=== PATIENT | male | born 1950 | race Caucasian/White ===

== ENCOUNTER 2017-01-13 16:55 | Emergency (ER) | payer OTHER ==
[~2017-01-13] VITALS: Ht 165.1 cm; Wt 90.3 kg
[2017-01-13 16:58] VITALS: BP 148/102
--- NOTE | 2017-01-13 18:16 | NUR ---
PATIENT TAKEN TO BED 5.
--- NOTE | 2017-01-13 18:24 | NUR ---
PT PRESENTS TO ER W/C/O SOB X2 WEEKS O2 SAT OF 100%. HX ANXIETY.PAIN ALERT CALF;PAIN SCALE OF 10/10.DENIES ANY MEDICAL HX;STEADY GAIT;AAOX4;NO ACUTE DISTRESS NOTED;NEEDS ATTENDED;SAFETY MEASURES DONE;ALL MONITORS IN PLACED;POSITIONED FOR COMFORT;
[2017-01-13] MEDS ORDERED: KETOROLAC 60 MG/2 ML VIAL IM ONE (18:30)
--- NOTE | 2017-01-13 18:59 | NUR ---
US AT BEDSIDE.
--- NOTE | 2017-01-13 19:15 | NUR ---
report receivd from dede shrestha
--- NOTE | 2017-01-13 19:21 | NUR ---
REPORT GIVEN TO CLIFFORD ENRIQUE
[2017-01-13 20:00] VITALS: BP 131/82
== END 2017-01-13 19:59 | disposition home or self-care (01) ==
LOC: MED 16:55
DX: M25.562 Pain in left knee (principal); R06.02 Shortness of breath; F41.9 Anxiety disorder, unspecified
CPT/HCPCS: 93971; 96372; 99284; J1885; Q0092

== ENCOUNTER 2018-08-29 21:41 | Emergency (ER) | payer OTHER ==
[~2018-08-29] VITALS: Ht 157.5 cm; Wt 88.0 kg
[2018-08-29 21:56] VITALS: BP 203/112
--- NOTE | 2018-08-29 21:58 | NUR ---
TO LOBBY A/W BED, АНДРЕЙ BEAR NOTED
--- NOTE | 2018-08-29 22:05 | NUR ---
Sling to left arm applied for support. Jaci well.
[2018-08-29] MEDS ORDERED: KETOROLAC 30 MG/ML VIAL IM ONE (22:25)
--- NOTE | 2018-08-29 22:50 | NUR ---
PT RETURN FROM RADIOLOGY
--- NOTE | 2018-08-29 22:54 | NUR ---
Dr. Valdez evaluating patient at bedside.
[2018-08-29] MEDS ORDERED: PROPOFOL 200 MG/20 ML VIAL IV ONE ×2 (23:00→23:35)
--- NOTE | 2018-08-29 23:00 | NUR ---
67/M BIB AND DAUGHTER, S/P FALL TODAY, C/O 10/10 L SHOULDER PAIN. L SHOULDER SKIN INTACT, WITH DEFORMITY NOTED, TENDER TO TOUCH, +CIRCULATION, +SENSATION, DECREASED ROM. PT AOX4, GCS 15, AMBULATORY, PT IN MODERATE DISTRESS IN PAIN. HX HTN, HLD.
--- NOTE | 2018-08-29 23:15 | NUR ---
MODERATE SEDATION CONSENT SIGNED AND PRE-PROCEDURE COMPLETED. ER MD, RT, CHIMNEY BUILDER, EMT AND PRIMARY RN AT BEDSIDE.
--- NOTE | 2018-08-29 23:17 | NUR ---
Dr. Valdez at bedside for procedure
--- NOTE | 2018-08-29 23:18 | NUR ---
L SHOULDER DISCOLATION REDUCTION WITH MODERATE SEDATION PROCEDURE STARTED AT THIS TIME.
--- NOTE | 2018-08-29 23:25 | NUR ---
SUCCESSFUL REDUCTION OF L SHOULDER, PT TOLERATED WELL. VSS, RR EVEN AND UNLABORED.
--- NOTE | 2018-08-29 23:35 | NUR ---
RASS SCORE 0
--- NOTE | 2018-08-30 00:20 | NUR ---
PT AOX4, REPORTS HUGE RELIEF OF L SHOULDER PAIN, PT AMBULATORY. PT FAMILY AT BEDSIDE.
[2018-08-30 00:23] VITALS: BP 132/79
--- NOTE | 2018-08-30 00:23 | NUR ---
Patient discharged with v/s stable. Written and verbal after care instructions given and explained. Patient alert, oriented and verbalized understanding of instructions. Ambulatory with steady gait. All questions addressed prior to discharge. ID band removed. Patient advised to follow up with PMD. Rx of NORCO, NAPROSYN given. Patient educated on indication of medication including possible reaction and side effects. Opportunity to ask questions provided and answered.
[2018-08-30] MEDS ORDERED: NACL 0.9% 1,000 ML IV ONE (02:30)
== END 2018-08-30 00:23 | disposition home or self-care (01) ==
LOC: MED 21:41
DX: S43.005A Unspecified dislocation of left shoulder joint, initial encounter (principal); Z90.49 Acquired absence of other specified parts of digestive tract; W01.0XXA Fall on same level from slipping, tripping and stumbling without subsequent striking against object, initial encounter; Y93.89 Activity, other specified; Y92.89 Other specified places as the place of occurrence of the external cause; Y99.8 Other external cause status
CPT/HCPCS: 23650; 73030; 96372; 99285; G0500; J1885; J2704; J7030; Q0092

== ENCOUNTER 2018-12-17 08:01 | Day surgery (SDC) | payer MEDICAID, OTHER ==
[~2018-12-17] VITALS: Ht 152.4 cm; Wt 88.0 kg
[2018-12-17] MEDS ORDERED: fentaNYL 0.05 MG/ML VIAL ONE (10:31)
[2018-12-17] MEDS ORDERED: LIDOCAINE 2% 100 MG/5 ML UJET TP ONE (10:31)
[2018-12-17] MEDS ORDERED: fentaNYL 0.05 MG/ML VIAL IVP ONE (11:15)
== END 2018-12-17 10:50 | disposition home or self-care (01) ==
LOC: MDS 08:01 → MMU 08:01 → MDS 10:50
PROVIDERS: ATTEND Internal Medicine Gastroenterology
DX: D12.3 Benign neoplasm of transverse colon (principal); K57.30 Diverticulosis of large intestine without perforation or abscess without bleeding; I10 Essential (primary) hypertension; E78.00 Pure hypercholesterolemia, unspecified; M19.90 Unspecified osteoarthritis, unspecified site; F41.9 Anxiety disorder, unspecified; E66.9 Obesity, unspecified; Z68.37 Body mass index [BMI] 37.0-37.9, adult; Z79.82 Long term (current) use of aspirin; Z79.899 Other long term (current) drug therapy; Z90.49 Acquired absence of other specified parts of digestive tract
CPT/HCPCS: 45385; J3010

== ENCOUNTER 2023-05-28 13:22 | Emergency (ER) | payer OTHER ==
[~2023-05-28] VITALS: Ht 162.6 cm; Wt 91.2 kg
[2023-05-28 13:32] VITALS: BP 127/81; PULSE 84; RESP 18; TEMP 97.6; O2SAT 98
[2023-05-28 17:26] VITALS: BP 122/80; PULSE 80; RESP 12; TEMP 98; O2SAT 99
== END 2023-05-28 17:26 | disposition home or self-care (01) ==
LOC: MED 13:22
DX: R07.81 Pleurodynia (principal); I10 Essential (primary) hypertension; E78.5 Hyperlipidemia, unspecified; W01.198A Fall on same level from slipping, tripping and stumbling with subsequent striking against other object, initial encounter; Y93.01 Activity, walking, marching and hiking; Y92.009 Unspecified place in unspecified non-institutional (private) residence as the place of occurrence of the external cause; Y99.8 Other external cause status
CPT/HCPCS: 71250; 99284